=== PATIENT | male | born 1940 | race Caucasian/White ===

== ENCOUNTER 2017-08-08 08:37 | Inpatient (IN) | payer MEDICARE, BC ==
[2017-08-08] MEDS ORDERED: Sodium Chloride 0.9% 1,000 ML IV SCH ×2 (08:45→09:30)
[2017-08-08] MEDS ORDERED: Ondansetron 4 MG/2 ML SDV IVPUSH ONE (09:48)
--- NOTE | 2017-08-08 09:48 | EDM.PDOC ---
ED HPI GENERAL MEDICAL PROBLEM - General Chief Complaint: General Stated Complaint: MEDICAL [facility] Time Seen by Provider: 08/08/17 08:45 Source of Information: Reports: EMS, Family History Limitations: Reports: No Limitations - History of Present Illness INITIAL COMMENTS - FREE TEXT/NARRATIVE: pt arrived with a history of increased weakness. He is not able to transfer or ambulate. He has been taking fluids. His urine is very foul smelling. He is not verbal normally. He has not been vomiting. Onset: Gradual, Other ( Pt has not been doing well for the past few days. ) Duration: Day(s):, Getting Worse, Other ( just could not ambulate today. ) Location: Reports: Generalized Associated Symptoms: Reports: Loss of Appetite, Weakness - Related Data Allergies Allergy/AdvReac Type Severity Reaction Status Date / Time Latex, Natural Rubber Allergy Intermediate Swelling Verified 08/08/17 18:13 amoxicillin Allergy Nausea Verified 08/08/17 09:06 Home Meds: Home Meds Atenolol 12.5 mg PO BID 08/08/17 [History] Calcium Carbonate [Calcium] 1,200 mg PO DAILY 08/08/17 [History] Donepezil [Aricept] 5 mg PO ONETIME 08/08/17 [History] Folic Acid 2 mg PO DAILY 08/08/17 [History] Methotrexate 2.5 mg PO ASDIRECTED 08/08/17 [History] Potassium Chloride 30 meq PO DAILY 08/08/17 [History] Simvastatin [Zocor] 40 mg PO BEDTIME 08/08/17 [History] amLODIPine [Norvasc] 5 mg PO DAILY 08/08/17 [History] Past Medical History HEENT History: Reports: Hard of Hearing, Impaired Vision Other HEENT History: ear surgery Cardiovascular History: Reports: High Cholesterol, Hypertension Gastrointestinal History: Reports: Other (See Below) Other Gastrointestinal History: hernia Genitourinary History: Reports: Chronic Renal Insuffiency, Urinary Incontinence Musculoskeletal History: Reports: Fracture, Osteoporosis Other Musculoskeletal History: hip fx Neurological History: Reports: Alzheimers Disease Psychiatric History: Reports: Anxiety, Depression Dermatologic History: Reports: Psoriasis, Other (See Below) Other Dermatologic History: psoriatic athritis - Infectious Disease History Infectious Disease History: Reports: Chicken Pox, Measles, Mumps - Past Surgical History GI Surgical History: Reports: Appendectomy, Colonoscopy Social & Family History - Tobacco Use Smoking Status *Q: Never Smoker Second Hand Smoke Exposure: No - Caffeine Use Caffeine Use: Reports: None - Recreational Drug Use Recreational Drug Use: No ED ROS GENERAL - Review of Systems Review Of Systems: See Below HEENT: Reports: No Symptoms Respiratory: Reports: No Symptoms Cardiovascular: Reports: Other ( history of a aortiv valve replacement. ) Endocrine: Reports: No Symptoms GI/Abdominal: Reports: Other ( some abdomanal tenderness in epigastric area. He hs been vomiting alot.) : Reports: No Symptoms Musculoskeletal: Reports: No Symptoms Skin: Reports: No Symptoms ED EXAM, GENERAL - Physical Exam Exam: See Below Free Text/Narrative:: pt arrived with increased weakness. They were not able to get him out of bed as he was not able to help. He was not running a temp. His urine was faul. Exam Limited By: No Limitations General Appearance: Alert, Mild Distress, Other (pt is not normally verbal. ) Ears: Normal TMs Nose: Normal Inspection Throat/Mouth: Normal Inspection Head: Atraumatic Neck: Normal Inspection Respiratory/Chest: No Respiratory Distress Cardiovascular: Regular Rate, Rhythm GI/Abdominal: Other ( abdoman seemes distended. He is difficult to evaluate. It would appear that he is tender. ) (Male) Exam: Normal Inspection Rectal (Males) Exam: Deferred Back Exam: Normal Inspection Extremities: Other ( Pt has edema particularly on the rt side. ) Neurological: Alert, Other (pt is not normally verbal. ) Course - Vital Signs Last Recorded V/S: Last Vital Signs Temp 35.8 C 08/10/17 16:25 Pulse 59 L 08/10/17 11:34 Resp 16 08/10/17 11:34 BP 92/56 L 08/10/17 11:34 Pulse Ox 95 08/10/17 16:25 - Orders/Labs/Meds Orders: Medication Orders Acetaminophen (Tylenol) 650 mg PO Q4H PRN PRN Reason: Pain (Mild 1-3)/fever Acetaminophen (Tylenol) 650 mg RECTAL Q4H PRN PRN Reason: Mild pain/fever Atropine Sulfate (Atropine 1%) 0 ml SL Q4H PRN PRN Reason: secretions Last Admin: 08/09/17 11:20 Dose: 4 drop Lorazepam (Ativan Oral Concentrate 1mg/0.5 Ml U/D) 0.5 mg PO Q1H PRN PRN Reason: Agitation Melatonin (Melatonin) 9 mg PO BEDTIME RADHA Last Admin: 08/09/17 21:17 Dose: Not Given Admin: 08/08/17 20:19 Dose: 9 mg Morphine Sulfate (Morphine 10 Mg/0.5 Ml Oral Syringe) 5 mg PO Q1H PRN PRN Reason: Pain Last Admin: 08/10/17 18:31 Dose: 5 mg Ondansetron HCl (Zofran) 4 mg IV Q6H PRN PRN Reason: Nausea/Vomiting Labs: Laboratory Tests 08/08/17 08/08/17 08/08/17 Range/Units 08:57 08:57 09:25 WBC 3.9 L (4.5-11.0) K/uL RBC 3.45 L (4.30-5.90) M/uL Hgb 11.7 L (12.0-15.0) g/dL Hct 35.6 L (40.0-54.0) % MCV 103 H (80-98) fL MCH 34 H (27-31) pg MCHC 33 (32-36) % Plt Count 80 L (150-400) K/uL Neut % (Auto) 75 H (36-66) % Lymph % (Auto) 21 L (24-44) % Wilkinson % (Auto) 1 L (2-6) % Eos % (Auto) 3 (2-4) % Baso % (Auto) 0 (0-1) % Sodium 152 H (140-148) mmol/L Potassium 3.6 (3.6-5.2) mmol/L Chloride 115 H (100-108) mmol/L Carbon Dioxide 30 (21-32) mmol/L Anion Gap 10.6 (5.0-14.0) mmol/L BUN 51 H (7-18) mg/dL Creatinine 1.5 H (0.8-1.3) mg/dL Est Cr Clr Drug Dosing TNP Estimated GFR (MDRD) 46 L (>60) Glucose 130 H (74-106) mg/dL Calcium 8.5 (8.5-10.1) mg/dL Total Bilirubin 2.6 H (0.2-1.0) mg/dL AST 75 H (15-37) U/L ALT 44 (12-78) U/L Alkaline Phosphatase 142 H (46-116) U/L Total Protein 5.1 L (6.4-8.2) g/dL Albumin 2.0 L (3.4-5.0) g/dL Globulin 3.1 (2.3-3.5) g/dL Albumin/Globulin Ratio 0.7 L (1.2-2.2) Amylase (25-115) U/L Lipase 496 H (73-393) U/L Urine Color Urine Appearance Urine pH (4.5-8.0) Ur Specific [place] (1.008-1.030) Urine Protein (NEGATIVE) mg/dL Urine Glucose (UA) (NEGATIVE) mg/dL Urine Ketones (NEGATIVE) mg/dL Urine Occult Blood (NEGATIVE) Urine Nitrite (NEGAITVE) Urine Bilirubin (NEGATIVE) Urine Urobilinogen (NORMAL) mg/dL Ur Leukocyte Esterase (NEGATIVE) Urine RBC (0-5) Urine WBC (0-5) Ur Epithelial Cells Amorphous Sediment Urine Bacteria Urine Mucus Urine Other 08/08/17 08/08/17 Range/Units 10:06 10:12 WBC (4.5-11.0) K/uL RBC (4.30-5.90) M/uL Hgb (12.0-15.0) g/dL Hct (40.0-54.0) % MCV (80-98) fL MCH (27-31) pg MCHC (32-36) % Plt Count (150-400) K/uL Neut % (Auto) (36-66) % Lymph % (Auto) (24-44) % Wilkinson % (Auto) (2-6) % Eos % (Auto) (2-4) % Baso % (Auto) (0-1) % Sodium (140-148) mmol/L Potassium (3.6-5.2) mmol/L Chloride (100-108) mmol/L Carbon Dioxide (21-32) mmol/L Anion Gap (5.0-14.0) mmol/L BUN (7-18) mg/dL Creatinine (0.8-1.3) mg/dL Est Cr Clr Drug Dosing Estimated GFR (MDRD) (>60) Glucose (74-106) mg/dL Calcium (8.5-10.1) mg/dL Total Bilirubin (0.2-1.0) mg/dL AST (15-37) U/L ALT (12-78) U/L Alkaline Phosphatase (46-116) U/L Total Protein (6.4-8.2) g/dL Albumin (3.4-5.0) g/dL Globulin (2.3-3.5) g/dL Albumin/Globulin Ratio (1.2-2.2) Amylase 50 (25-115) U/L Lipase (73-393) U/L Urine Color Yellow Urine Appearance Slightly cloudy Urine pH 6.0 (4.5-8.0) Ur Specific [place] 1.015 (1.008-1.030) Urine Protein Negative (NEGATIVE) mg/dL Urine Glucose (UA) Normal (NEGATIVE) mg/dL Urine Ketones 15 H (NEGATIVE) mg/dL Urine Occult Blood Negative (NEGATIVE) Urine Nitrite Negative (NEGAITVE) Urine Bilirubin Small (NEGATIVE) Urine Urobilinogen >=12 H (NORMAL) mg/dL Ur Leukocyte Esterase Negative (NEGATIVE) Urine RBC 0-5 (0-5) Urine WBC 0-5 (0-5) Ur Epithelial Cells Few Amorphous Sediment Not seen Urine Bacteria Not seen Urine Mucus Many Urine Other Meds: Medications Generic Name Dose Route Start Last Admin Trade Name Freq PRN Reason Stop Dose Admin Acetaminophen 650 mg 08/08/17 15:54 Tylenol PO Q4H PRN Pain (Mild 1-3)/fever Acetaminophen 650 mg 08/08/17 15:54 Tylenol RECTAL Q4H PRN Mild pain/fever Atropine Sulfate 0 ml 08/09/17 11:09 08/09/17 11:20 Atropine 1% SL 4 drop Q4H PRN Administration secretions Lorazepam 0.5 mg 08/09/17 10:22 Ativan Oral Concentrate 1mg/0.5 Ml U/D PO Q1H PRN Agitation Melatonin 9 mg 08/08/17 21:00 08/09/17 21:17 Melatonin PO Not Given BEDTIME RADHA Morphine Sulfate 5 mg 08/09/17 10:24 08/10/17 18:31 Morphine 10 Mg/0.5 Ml Oral Syringe PO 5 mg Q1H PRN Administration Pain Ondansetron HCl 4 mg 08/08/17 15:54 Zofran IV Q6H PRN Nausea/Vomiting Discontinued Medications Generic Name Dose Route Start Last Admin Trade Name Freq PRN Reason Stop Dose Admin Donepezil HCl 5 mg 08/08/17 21:00 08/08/17 20:20 Aricept PO 5 mg BEDTIME RADHA Administration Folic Acid 2 mg 08/09/17 09:00 08/09/17 08:56 Folic Acid PO 2 mg DAILY RADHA Administration Sodium Chloride 1,000 mls @ 999 mls/hr 08/08/17 08:45 08/08/17 09:45 Normal Saline IV 999 mls/hr ASDIRECTED RADHA Administration Sodium Chloride 1,000 mls @ 999 mls/hr 08/08/17 09:30 08/08/17 11:01 Normal Saline IV 999 mls/hr ASDIRECTED RADHA Administration Potassium Chloride/Dextrose/Sod Cl 1,000 mls @ 100 mls/hr 08/08/17 14:45 01:57 D5 Ns With 20 Meq Kcl IV 100 mls/hr ASDIRECTED RADHA Administration Dextrose/Water 1,000 mls @ 100 mls/hr 08/09/17 08:30 Dextrose 5% In Water IV ASDIRECTED RADHA Morphine Sulfate 5 mg 08/08/17 15:54 Morphine 10 Mg/0.5 Ml Oral Syringe PO Q2H PRN Pain Ondansetron HCl 4 mg 08/08/17 09:48 08/08/17 09:15 Zofran IVPUSH 08/08/17 09:49 4 mg ONETIME ONE Administration Ondansetron HCl 4 mg 08/08/17 15:54 Zofran Odt PO Q6H PRN Nausea able to take PO Polyethylene Glycol 17 gm 08/08/17 15:54 Miralax PO DAILY PRN Constipation - Re-Assessments/Exams Free Text/Narrative Re-Assessment/Exam: 08/08/17 10:43 ABDOMAN LOOKS LIKE CIRRHOSIS OF THE LIVER WITH ACETES-- PER uS. wILL DO A CAT SCAN OF THE ABDOMAN WITHOUT CONTRAST. pT HAS AN ELEVATED LIPASE, AND SGOT. hE HAS ELEVATED BILIRUBIN. 08/08/17 11:35 pt had a cat scan of the abdoman which showed a probalbe cirrhosis of the liver He has alot of ascetes which is making the abdoman distended. Departure - Departure Time of Disposition: 16:25 Disposition: Admitted As Inpatient 67 Condition: Fair Clinical Impression: Severe dehydration Cirrhosis of liver Qualifiers: Hepatic cirrhosis type: unspecified hepatic cirrhosis Ascites presence: with ascites Qualified Code(s): K74.60 - Unspecified cirrhosis of liver - Discharge Information
--- NOTE | 2017-08-08 11:19 | CT ---
Abdomen Pelvis wo Cont HISTORY: ABDOMINAL DISTENTION Axial spiral noncontrasted CT scan of the abdomen and pelvis was obtained along with coronal reconstr uctions. There are no prior exams present for comparison. FINDINGS: There are moderate bilateral pleural effusions, right greater than left. Adjacent compressi ve atelectasis is seen posteriorly in both lower lobes. There is mild respiratory motion artifact. He art size is normal. Atherosclerotic aorta and coronary artery calcification are noted. Liver is small with a cirrhotic appearance. The spleen is normal in size. I see no abnormality of the gallbladder, pancreas, or adrenal glands. Left kidney is atrophic. No renal mass or hydronephrosis i s seen. I see no renal stone disease. No pelvic mass or abnormal fluid collections can be seen. I see no pelvic, or intracranial, or mesent mukund adenopathy. There is a large amount of free fluid throughout the abdomen and pelvis. No divertic ular disease is identified. No colon abnormality can be seen. A few proximal small bowel loops appear mildly distended and fluid-filled. There is no obvious lytic or blastic bony lesion. Several old rig ht posterior rib fractures are noted. There is some edema in the subcutaneous tissues. IMPRESSION: 1. Moderate bilateral pleural effusions, right greater than left, with adjacent compressive atelectas is. 2. Large amount of ascites throughout the abdomen and pelvis. 3. Small, cirrhotic appearing liver. 4. Atherosclerotic aorta and coronary artery calcification are noted. 5. A couple of slightly prominent, fluid-filled proximal small bowel loops are noted. No definite obs truction. 6. There is subcutaneous edema. Anasarca could be considered. Findings were discussed with Dr. Jansen in the Emergency Department at 1110 hours. Total DLP 979 mGycm
--- NOTE | 2017-08-08 11:32 | CR ---
Chest 1V Frontal HISTORY: weakness. FINDINGS: No acute infiltrate is identified. Cardiomediastinal silhouette is within normal limits. There is ath erosclerotic calcification in the aortic arch. Superior pulmonary vasculature is borderline prominent . Haziness over the lower right chest likely represents pleural fluid layering posteriorly. Several p osterior right rib fractures are probably old. Recommend clinical correlation. Bony structures and so ft tissues are otherwise unremarkable. IMPRESSION: Possible right pleural effusion layering posteriorly. Posterior right rib fractures are likely old. R ecommend clinical correlation. Superior pulmonary vasculature is borderline prominent. No other acute chest abnormality is identified.
--- NOTE | 2017-08-08 12:24 | US ---
Abdomen Ltd HISTORY: upper abdominal pain, elevated liver enzymes. FINDINGS: The liver appears small with mildly lobular margins and diffuse increased echogenicity consistent wit h cirrhosis. No focal parenchymal abnormality identified. Gallbladder is within normal limits in size . No gallstones are seen. Gallbladder wall is thickened measuring 6 mm. There is no pericholecystic f luid. Sonographic Che sign is negative. Biliary ducts are not dilated. Common bile duct measures 5 mm in diameter. The pancreas is obscured by bowel gas and could not be imaged. Right kidney is borderline small with no mass or hydronephrosis. There is no thinning of the renal cortex. The right kidney measures 8.5 x 5.1 x 5.7. Cortical echogenicity appears mildly decreased diffusely. Renal parenchymal disease could be considered. Abdominal aorta and inferior vena cava are unremarkable. Normal hepatopedal flow is se en in the portal vein. A large amount of ascites is seen throughout the abdomen. IMPRESSION: 1. Cirrhotic appearing liver. 2. Borderline small right kidney with increased cortical echogenicity suggests renal parenchymal dise ase. 3. Large amount of ascites throughout the abdomen. 4. Mild gallbladder wall thickening with no other gallbladder disease identified. The isolated wall t hickening is nonspecific and could be due to the cirrhosis and ascites.
--- NOTE | 2017-08-08 14:53 | PCM.HP ---
H&P History of Present Illness - General Date of Service: 08/08/17 Admit Problem/Dx: Admission Diagnosis/Problem Admission Diagnosis/Problem Hypernatremia Source of Information: Family, Provider. No: Patient History Limitations: Reports: Altered Mental Status - History of Present Illness Initial Comments - Free Text/Narative: Everette presents to the emergency room today with weakness. He is unable to provide any history at this time. History is gathered from his and son. They report over the past week or so he has become progressively weak. At baseline he sleeps approximately 20 hours a day but is able to get out of bed enough to go to the bathroom. Over the past few days he is too weak to bear any weight or even get to the side of the bed to use the urinal. They haven't noticed anything specific such as fevers. He has not displayed any evidence for pain and has not complained of any pain. They report that usually he is nonverbal and communicates with grunts. He will occasionally say a word but has not made sense for some months. Workup in the emergency room revealed significant dehydration with hypernatremia as well as pancytopenia based on laboratory testing. CT scan of the abdomen suggested cirrhosis with significant ascites. After discussion with the family we have elected to admit for hydration to see if we can improve strength and mental status some. They don't want aggressive workup for the cirrhosis at this time given his advanced Alzheimer's disease. - Related Data Allergies/Adverse Reactions: Allergies Allergy/AdvReac Type Severity Reaction Status Date / Time amoxicillin Allergy Nausea Verified 08/08/17 09:06 Home Medications: Home Meds Atenolol 12.5 mg PO BID 08/08/17 [History] Calcium Carbonate [Calcium] 1,200 mg PO DAILY 08/08/17 [History] Donepezil [Aricept] 5 mg PO ONETIME 08/08/17 [History] Folic Acid 2 mg PO DAILY 08/08/17 [History] Methotrexate 2.5 mg PO ASDIRECTED 08/08/17 [History] Potassium Chloride 30 meq PO DAILY 08/08/17 [History] Simvastatin [Zocor] 40 mg PO BEDTIME 08/08/17 [History] amLODIPine [Norvasc] 5 mg PO DAILY 08/08/17 [History] Past Medical History HEENT History: Reports: Hard of Hearing, Impaired Vision Other HEENT History: ear surgery Cardiovascular History: Reports: High Cholesterol, Hypertension Gastrointestinal History: Reports: Other (See Below) Other Gastrointestinal History: hernia Genitourinary History: Reports: Chronic Renal Insuffiency, Urinary Incontinence Musculoskeletal History: Reports: Fracture, Osteoporosis Other Musculoskeletal History: hip fx Neurological History: Reports: Alzheimers Disease Psychiatric History: Reports: Anxiety, Depression Dermatologic History: Reports: Psoriasis, Other (See Below) Other Dermatologic History: psoriatic athritis - Infectious Disease History Infectious Disease History: Reports: Chicken Pox, Measles, Mumps - Past Surgical History GI Surgical History: Reports: Appendectomy, Colonoscopy Social & Family History - Family History GI: Denies: Cirrhosis - Tobacco Use Smoking Status *Q: Never Smoker Second Hand Smoke Exposure: No - Caffeine Use Caffeine Use: Reports: None - Alcohol Use Alcohol Use History: No - Recreational Drug Use Recreational Drug Use: No H&P Review of Systems - Review of Systems: Review Of Systems: Unable To Obtain (Patient does not respond to any questions other than are you having pain) Exam - Exam Exam: See Below - Vital Signs Vital Signs: Last Vital Signs Temp 36.1 C 08/08/17 08:43 Pulse 56 L 08/08/17 08:43 Resp 16 08/08/17 08:43 BP 88/44 L 08/08/17 08:43 Pulse Ox 91 L 08/08/17 08:43 Weight: 52.163 kg - Exam Quality Assessment: No: Supplemental Oxygen General: Alert, Lethargic. No: Oriented, Cooperative, Mild Distress HEENT: Conjunctiva Clear, Hearing Intact. No: Mucosa Moist & Kaplan (Very dry), Scleral Icterus Neck: Supple, Trachea Midline. No: Lymphadenopathy, Thyromegaly Lungs: Clear to Auscultation, Normal Respiratory Effort Cardiovascular: Regular Rate, Regular Rhythm. No: Systolic Murmur GI/Abdominal Exam: Normal Bowel Sounds, Soft, Non-Tender, Distended (Moderate) Extremities: No Pedal Edema. No: Joint Swelling, Increased Warmth Peripheral Pulses: 2+: Dorsalis Pedis (L), Dorsalis Pedis (R) Skin: Warm, Dry Neuro Extensive - Mental Status: Alert, Slow Response to Commands. No: Oriented x3 Neuro Extensive - Motor, Sensory, Reflexes: No: Dysarthria, Abnormal Motor, Tremor Psychiatric: Alert, Anxious - Patient Data Lab Results Last 24 hrs: Laboratory Results - last 24 hr 08/08/17 08/08/17 08/08/17 Range/Units 08:57 08:57 09:25 WBC 3.9 L (4.5-11.0) K/uL RBC 3.45 L (4.30-5.90) M/uL Hgb 11.7 L (12.0-15.0) g/dL Hct 35.6 L (40.0-54.0) % MCV 103 H (80-98) fL MCH 34 H (27-31) pg MCHC 33 (32-36) % Plt Count 80 L (150-400) K/uL Neut % (Auto) 75 H (36-66) % Lymph % (Auto) 21 L (24-44) % [place]house % (Auto) 1 L (2-6) % Eos % (Auto) 3 (2-4) % Baso % (Auto) 0 (0-1) % Sodium 152 H (140-148) mmol/L Potassium 3.6 (3.6-5.2) mmol/L Chloride 115 H (100-108) mmol/L Carbon Dioxide 30 (21-32) mmol/L Anion Gap 10.6 (5.0-14.0) mmol/L BUN 51 H (7-18) mg/dL Creatinine 1.5 H (0.8-1.3) mg/dL Est Cr Clr Drug Dosing TNP Estimated GFR (MDRD) 46 L (>60) Glucose 130 H (74-106) mg/dL Calcium 8.5 (8.5-10.1) mg/dL Total Bilirubin 2.6 H (0.2-1.0) mg/dL AST 75 H (15-37) U/L ALT 44 (12-78) U/L Alkaline Phosphatase 142 H (46-116) U/L Total Protein 5.1 L (6.4-8.2) g/dL Albumin 2.0 L (3.4-5.0) g/dL Globulin 3.1 (2.3-3.5) g/dL Albumin/Globulin Ratio 0.7 L (1.2-2.2) Amylase (25-115) U/L Lipase 496 H (73-393) U/L Urine Color Urine Appearance Urine pH (4.5-8.0) Ur Specific [place] (1.008-1.030) Urine Protein (NEGATIVE) mg/dL Urine Glucose (UA) (NEGATIVE) mg/dL Urine Ketones (NEGATIVE) mg/dL Urine Occult Blood (NEGATIVE) Urine Nitrite (NEGAITVE) Urine Bilirubin (NEGATIVE) Urine Urobilinogen (NORMAL) mg/dL Ur Leukocyte Esterase (NEGATIVE) Urine RBC (0-5) Urine WBC (0-5) Ur Epithelial Cells Amorphous Sediment Urine Bacteria Urine Mucus Urine Other 08/08/17 08/08/17 Range/Units 10:06 10:12 WBC (4.5-11.0) K/uL RBC (4.30-5.90) M/uL Hgb (12.0-15.0) g/dL Hct (40.0-54.0) % MCV (80-98) fL MCH (27-31) pg MCHC (32-36) % Plt Count (150-400) K/uL Neut % (Auto) (36-66) % Lymph % (Auto) (24-44) % Morehouse % (Auto) (2-6) % Eos % (Auto) (2-4) % Baso % (Auto) (0-1) % Sodium (140-148) mmol/L Potassium (3.6-5.2) mmol/L Chloride (100-108) mmol/L Carbon Dioxide (21-32) mmol/L Anion Gap (5.0-14.0) mmol/L BUN (7-18) mg/dL Creatinine (0.8-1.3) mg/dL Est Cr Clr Drug Dosing Estimated GFR (MDRD) (>60) Glucose (74-106) mg/dL Calcium (8.5-10.1) mg/dL Total Bilirubin (0.2-1.0) mg/dL AST (15-37) U/L ALT (12-78) U/L Alkaline Phosphatase (46-116) U/L Total Protein (6.4-8.2) g/dL Albumin (3.4-5.0) g/dL Globulin (2.3-3.5) g/dL Albumin/Globulin Ratio (1.2-2.2) Amylase 50 (25-115) U/L Lipase (73-393) U/L Urine Color Yellow Urine Appearance Slightly cloudy Urine pH 6.0 (4.5-8.0) Ur Specific [place] 1.015 (1.008-1.030) Urine Protein Negative (NEGATIVE) mg/dL Urine Glucose (UA) Normal (NEGATIVE) mg/dL Urine Ketones 15 H (NEGATIVE) mg/dL Urine Occult Blood Negative (NEGATIVE) Urine Nitrite Negative (NEGAITVE) Urine Bilirubin Small (NEGATIVE) Urine Urobilinogen >=12 H (NORMAL) mg/dL Ur Leukocyte Esterase Negative (NEGATIVE) Urine RBC 0-5 (0-5) Urine WBC 0-5 (0-5) Ur Epithelial Cells Few Amorphous Sediment Not seen Urine Bacteria Not seen Urine Mucus Many Urine Other Result Diagrams: 08/08/17 08:57 08/08/17 08:57 Imaging Impressions Last 24 hrs: Chest x-ray - images personally reviewed - possible small right effusion. Heart size normal. No mass, infiltrate Right upper quadrant ultrasound - cirrhotic appearing liver. Mildly increased gallbladder wall thickness. Ascites CT scan of the abdomen and pelvis - cirrhotic appearing liver with significant ascites throughout the abdomen. *Q Meaningful Use (ADM) - VTE *Q VTE Criteria *Q: - VTE Risk Assess *Q Each Risk Factor Represents 1 Point: None Total Score 1 Point Risk Factors: 0 Each Risk Factor Represents 2 Points: Patient confined to bed greater than 72 hours Total Score 2 Point Risk Factors: 2 Each Risk Factor Represents 3 Points: Age 75 Years or Greater Total Score 3 Point Risk Factors: 3 Each Risk Factor Represents 5 Points: None Total Score 5 Point Risk Factors: 0 Venous Thromboembolism Risk Factor Score *Q: 5 - Stroke *Q Stroke Criteria *Q: - AMI *Q AMI Criteria *Q: - Problem List (1) Hypernatremia SNOMED Code(s): 50631591 ICD Code: E87.0 - HYPEROSMOLALITY AND HYPERNATREMIA Status: Acute Current Visit: Yes (2) Cirrhosis of liver SNOMED Code(s): 90524663 ICD Code: K74.60 - UNSPECIFIED CIRRHOSIS OF LIVER Status: Acute Current Visit: Yes Qualifiers: Hepatic cirrhosis type: unspecified hepatic cirrhosis Ascites presence: with ascites Qualified Code(s): K74.60 - Unspecified cirrhosis of liver (3) Alzheimer's dementia without behavioral disturbance SNOMED Code(s): 35590913 ICD Code: G30.9 - ALZHEIMER'S DISEASE, UNSPECIFIED; F02.80 - DEMENTIA IN OTH DISEASES CLASSD ELSWHR W/O BEHAVRL DISTURB Status: Acute Current Visit: Yes Qualifiers: Alzheimer's disease onset: late-onset Qualified Code(s): G30.1 - Alzheimer' s disease with late onset; F02.80 - Dementia in other diseases classified elsewhere without behavioral disturbance; F02.80 - Dementia in other diseases classified elsewhere without behavioral disturbance; F02.80 - Dementia in other diseases classified elsewhere without behavioral disturbance (4) Hypokalemia SNOMED Code(s): 91885236 ICD Code: E87.6 - HYPOKALEMIA Status: Acute Current Visit: Yes (5) Stage III chronic kidney disease SNOMED Code(s): 719182023 ICD Code: N18.3 - CHRONIC KIDNEY DISEASE, STAGE 3 (MODERATE) Status: Chronic Current Visit: Yes (6) Palliative care encounter SNOMED Code(s): 428170535 ICD Code: Z51.5 - ENCOUNTER FOR PALLIATIVE CARE Status: Chronic Current Visit: Yes Problem List Initiated/Reviewed/Updated: Yes Orders Last 24hrs: Active Orders 24 hr Category Date Time Status Patient Status Manage Transfer [TRANSFER] Routine ADT 08/08/17 14:40 Ordered EKG Documentation Completion [RC] ASDIRECTED Care 08/08/17 09:06 Active Enciso Catheter Insertion [Insert Urinary Catheter] [OM. Care 08/08/17 09:30 Ordered PC] Q24H Urinary Catheter Assessment [RC] ASDIRECTED Care 08/08/17 09:24 Active CULTURE BLOOD [BC] Urgent Lab 08/08/17 10:15 Received CULTURE BLOOD [BC] Urgent Lab 08/08/17 10:21 Received Dextrose 5%-0.9% NaCl with KCl [D5 NS with 20 mEq KCl] Med 08/08/17 14:45 Active 1,000 ml IV ASDIRECTED Blood Culture x2 Reflex Set [OM.PC] Urgent Oth 08/08/17 10:07 Ordered Resuscitation Status Routine Resus Stat 08/08/17 14:41 Ordered EKG 12 Lead [EK] Routine Ther 08/08/17 09:05 Ordered Medication Orders Potassium Chloride/Dextrose/Sod Cl (D5 Ns With 20 Meq Kcl) 1,000 mls @ 100 mls/ hr IV ASDIRECTED RADHA Assessment/Plan Comment:: ASSESSMENT AND PLAN - Hypovolemic hypernatremia - significant dehydration on examination. I suspect his sodium will improve with hydration. If the sodium does not come down with hydration and we may need to consider a D5W infusion to correct his free water deficit. -Repeat sodium this afternoon -IV fluids through the day with repeat labs in the morning Cirrhosis - New diagnosis. Complicated by pancytopenia and ascites. Suspect toxic causes. He does not have a history of alcohol use or abuse per his family. Methotrexate could be considered. -Monitor for evidence of infection -Ammonia level -Hold off on diuretics given significant dehydration Alzheimer's dementia - Fairly rapid decline despite being started on medications. Very weak at this time. Family does not believe he would want aggressive interventions given his poor [id number]. -Continue Aricept -Discontinue statin -Morphine for comfort -Melatonin at bedtime Encounter for palliative care - Family is agreeable to admission for hydration but they do not want aggressive cares or resuscitation should his condition declined. Hospice make be considered if we are unable to improve his strength and quality of life over the next few days. Maintenance issues - - DVT prophylaxis - mechanical with thrombocytopenia - GI prophylaxis - not indicated - Nutrition - soft diet - Enciso catheter - placed in the emergency room CODE STATUS - DNR/DNI Admission justification - This patient will be admitted for inpatient services and is medically appropriate meeting medical necessity for inpatient admission as outlined in my documentation. I reasonably expect the patient will require inpatient services that span a period time over 2 midnights. I reasonably expect this patient to be discharged or transferred within 96 hours [facility] Disposition - anticipate discharge to home versus senior care versus home with hospice depending on the course of the hospital stay Primary care physician - Dr Nathan Gibbs M.D.
[2017-08-08] MEDS ORDERED: Acetaminophen 325 MG Tab PO PRN (15:54)
[2017-08-08] MEDS ORDERED: Acetaminophen 650 MG Supp RECTAL PRN (15:54)
[2017-08-08] MEDS ORDERED: Ondansetron 4 MG/2 ML SDV IV PRN (15:54)
[2017-08-08] MEDS ORDERED: Polyethylene Glycol 3350 Powder 17 GM Packet PO PRN (15:54)
[2017-08-08] MEDS ORDERED: Ondansetron 4 MG Tab.DIS PO PRN (15:54)
[2017-08-08] MEDS ORDERED: Morphine 10 MG/0.5 ML Oral Syringe PO PRN (15:54)
[2017-08-08] MEDS: Dextrose 5%-0.9% NaCl with KCl 1,000 ML IV SCH (16:00)
[2017-08-08] MEDS: Melatonin 3 MG Tab PO SCH (20:19)
[2017-08-08] MEDS ORDERED: Non-Formulary Medication 1 Each (Donepezil [Aricept] 5 MG) PO SCH (21:00)
[2017-08-08] MEDS ORDERED: Donepezil 10 MG Tab PO SCH (21:00)
[2017-08-09] MEDS: Dextrose 5%-0.9% NaCl with KCl 1,000 ML IV SCH (01:57)
[2017-08-09] MEDS ORDERED: Dextrose 5% in Water 1,000 ML IV SCH (08:30)
[2017-08-09] MEDS ORDERED: Folic Acid 1 MG Tab PO SCH (09:00)
[2017-08-09] MEDS ORDERED: Atropine Sulfate Ophth 2 ML Drops SL PRN (10:24)
--- NOTE | 2017-08-09 10:26 | PCM.PN ---
- General Info Date of Service: 08/09/17 - Review of Systems Pulmonary: Reports: Shortness of Breath, Cough Systems Review Comment:: Patient had a coughing episode last night while trying to consume supper and shortly thereafter developed increased work of breathing and hypoxia concerning for aspiration. He has been on 4 L of supplemental oxygen overnight. He appears uncomfortable this morning. He did not have any fevers. Sodium level remained stable but elevated despite volume resuscitation. I discussed the situation with his Eileen and son Chinedu again this morning. We have elected to move towards comfort cares given his advanced dementia complicated by cirrhosis and now aspiration pneumonitis with hypoxic respiratory failure. - Patient Data Vitals - Most Recent: Last Vital Signs Temp 35.7 C 08/09/17 08:19 Pulse 71 08/09/17 08:19 Resp 18 08/09/17 08:19 BP 81/51 L 08/09/17 08:19 Pulse Ox 93 L 08/09/17 08:19 Weight - Most Recent: 52.163 kg I&O - Last 24 Hours: Intake & Output 08/08/17 08/09/17 08/09/17 22:59 06:59 14:59 Intake Total 515 1330 Output Total 200 250 Balance 315 1080 Lab Results Last 24 Hours: Laboratory Results - last 24 hr 08/08/17 08/08/17 08/09/17 Range/Units 18:00 18:00 05:52 WBC 2.7 L (4.5-11.0) K/uL RBC 3.19 L (4.30-5.90) M/uL Hgb 11.1 L (12.0-15.0) g/dL Hct 32.8 L (40.0-54.0) % MCV 103 H (80-98) fL MCH 35 H (27-31) pg MCHC 34 (32-36) % Plt Count 51 L (150-400) K/uL PT (9.5-12.0) sec INR (0.80-1.20) Sodium 151 H (140-148) mmol/L Potassium (3.6-5.2) mmol/L Chloride (100-108) mmol/L Carbon Dioxide (21-32) mmol/L Anion Gap (5.0-14.0) mmol/L BUN (7-18) mg/dL Creatinine (0.8-1.3) mg/dL Est Cr Clr Drug Dosing mL/min Estimated GFR (MDRD) (>60) Glucose (74-106) mg/dL Calcium (8.5-10.1) mg/dL Ammonia 36 H (11-32) mmol/L TSH, Ultra Sensitive (0.358-3.740) uIU/mL 08/09/17 08/09/17 Range/Units 05:52 05:52 WBC (4.5-11.0) K/uL RBC (4.30-5.90) M/uL Hgb (12.0-15.0) g/dL Hct (40.0-54.0) % MCV (80-98) fL MCH (27-31) pg MCHC (32-36) % Plt Count (150-400) K/uL PT 16.4 H (9.5-12.0) sec INR 1.51 H (0.80-1.20) Sodium 153 H (140-148) mmol/L Potassium 3.5 L (3.6-5.2) mmol/L Chloride 118 H (100-108) mmol/L Carbon Dioxide 29 (21-32) mmol/L Anion Gap 9.5 (5.0-14.0) mmol/L BUN 47 H (7-18) mg/dL Creatinine 1.4 H (0.8-1.3) mg/dL Est Cr Clr Drug Dosing 33.12 mL/min Estimated GFR (MDRD) 49 L (>60) Glucose 157 H (74-106) mg/dL Calcium 7.9 L (8.5-10.1) mg/dL Ammonia (11-32) mmol/L TSH, Ultra Sensitive 2.573 (0.358-3.740) uIU/mL Med Orders - Current: Current Medications Acetaminophen (Tylenol) 650 mg PO Q4H PRN PRN Reason: Pain (Mild 1-3)/fever Acetaminophen (Tylenol) 650 mg RECTAL Q4H PRN PRN Reason: Mild pain/fever Lorazepam (Ativan Oral Concentrate 1mg/0.5 Ml U/D) 0.5 mg PO Q1H PRN PRN Reason: Agitation Melatonin (Melatonin) 9 mg PO BEDTIME RADHA Last Admin: 08/08/17 20:19 Dose: 9 mg Morphine Sulfate (Morphine 10 Mg/0.5 Ml Oral Syringe) 5 mg PO Q1H PRN PRN Reason: Pain Ondansetron HCl (Zofran) 4 mg IV Q6H PRN PRN Reason: Nausea/Vomiting Discontinued Medications Donepezil HCl (Aricept) 5 mg PO BEDTIME [facility] Last Admin: 08/08/17 20:20 Dose: 5 mg Folic Acid (Folic Acid) 2 mg PO DAILY [facility] Last Admin: 08/09/17 08:56 Dose: 2 mg Sodium Chloride (Normal Saline) 1,000 mls @ 999 mls/hr IV ASDIRECTED [facility] Last Admin: 08/08/17 09:45 Dose: 999 mls/hr Sodium Chloride (Normal Saline) 1,000 mls @ 999 mls/hr IV ASDIRECTED [facility] Last Admin: 08/08/17 11:01 Dose: 999 mls/hr Potassium Chloride/Dextrose/Sod Cl (D5 Ns With 20 Meq Kcl) 1,000 mls @ 100 mls/ hr IV ASDIRECTED [facility] Last Admin: 08/09/17 01:57 Dose: 100 mls/hr Dextrose/Water (Dextrose 5% In Water) 1,000 mls @ 100 mls/hr IV ASDIRECTED [facility] Morphine Sulfate (Morphine 10 Mg/0.5 Ml Oral Syringe) 5 mg PO Q2H PRN PRN Reason: Pain Ondansetron HCl (Zofran) 4 mg IVPUSH ONETIME ONE Stop: 08/08/17 09:49 Last Admin: 08/08/17 09:15 Dose: 4 mg Ondansetron HCl (Zofran Odt) 4 mg PO Q6H PRN PRN Reason: Nausea able to take PO Polyethylene Glycol (Miralax) 17 gm PO DAILY PRN PRN Reason: Constipation - Exam Quality Assessment: Supplemental Oxygen General: Alert, Moderate Distress. No: Oriented Lungs: Rhonchi (diffuse). No: Normal Respiratory Effort (increased work of breathing), Wheezing GI/Abdominal Exam: Distended Psy/Mental Status: Alert, Anxious, Agitated - Problem List & Annotations (1) Hypernatremia SNOMED Code(s): 66028837 Code(s): E87.0 - HYPEROSMOLALITY AND HYPERNATREMIA Status: Acute Current Visit: Yes (2) Cirrhosis of liver SNOMED Code(s): 41069131 Code(s): K74.60 - UNSPECIFIED CIRRHOSIS OF LIVER Status: Acute Current Visit: Yes Qualifiers: Hepatic cirrhosis type: unspecified hepatic cirrhosis Ascites presence: with ascites Qualified Code(s): K74.60 - Unspecified cirrhosis of liver (3) Alzheimer's dementia without behavioral disturbance SNOMED Code(s): 32718555 Code(s): G30.9 - ALZHEIMER'S DISEASE, UNSPECIFIED; F02.80 - DEMENTIA IN OTH DISEASES CLASSD ELSWHR W/O BEHAVRL DISTURB Status: Acute Current Visit: Yes Qualifiers: Alzheimer's disease onset: late-onset Qualified Code(s): G30.1 - Alzheimer' s disease with late onset; F02.80 - Dementia in other diseases classified elsewhere without behavioral disturbance; F02.80 - Dementia in other diseases classified elsewhere without behavioral disturbance; F02.80 - Dementia in other diseases classified elsewhere without behavioral disturbance (4) Hypokalemia SNOMED Code(s): 21052237 Code(s): E87.6 - HYPOKALEMIA Status: Acute Current Visit: Yes (5) Stage III chronic kidney disease SNOMED Code(s): 188873868 Code(s): N18.3 - CHRONIC KIDNEY DISEASE, STAGE 3 (MODERATE) Status: Chronic Current Visit: Yes (6) Palliative care encounter SNOMED Code(s): 685984421 Code(s): Z51.5 - ENCOUNTER FOR PALLIATIVE CARE Status: Chronic Current Visit: Yes - Problem List Review Problem List Initiated/Reviewed/Updated: Yes - My Orders Last 24 Hours: My Active Orders 08/08/17 15:54 Patient Status [ADT] Routine Bedrest Bedside Commode [RC] ASDIRECTED Intake and Output [RC] QSHIFT Notify Provider Vital Signs [RC] ASDIRECTED Oxygen Therapy [RC] PRN Up With Assistance [RC] ASDIRECTED VTE/DVT Education [RC] Per Unit Routine Vital Signs [RC] QSHIFT Acetaminophen [Tylenol] 650 mg PO Q4H PRN Acetaminophen [Tylenol] 650 mg RECTAL Q4H PRN Ondansetron [Zofran] 4 mg IV Q6H PRN Antiembolic Hose [OM.PC] Per Unit Routine Pressure Reduction Mattress [OM.PC] Routine VTE Pharmacological Contraindications [AST] Per Unit Routine 08/08/17 21:00 Melatonin 9 mg PO BEDTIME 08/08/17 Dinner Mechanical Soft Diet [DIET] 08/09/17 10:22 LORazepam [Ativan ORAL Concentrate 1MG/0.5 ML U/D] 0.5 mg PO Q1H PRN 08/09/17 10:23 Resuscitation Status Routine 08/09/17 10:24 Atropine Sulfate [Atropine 1%] 4 ml SL Q4H PRN Morphine [Morphine 10 MG/0.5 ML Oral Syringe] 5 mg PO Q1H PRN 08/09/17 Lunch Thickened Liquids [DIET] - Plan Plan:: ASSESSMENT AND PLAN - Hypovolemic hypernatremia - level has not improved despite volume resuscitation. Did plan to replace his free water deficit but we are transitioning to comfort cares as discussed below. -Saline lock IV Probable aspiration pneumonitis with hypoxic respiratory failure - coughing episode while eating supper followed shortly by hypoxic respiratory failure concerning for aspiration. This combined with his new cirrhosis and severe Alzheimer's disease has prompted a transition to comfort cares at this time. His and son are on board with this plan and do not feel that he would want aggressive cares given his very poor [id number]. -Morphine for pain and or air hunger -Lorazepam for anxiety Cirrhosis - New diagnosis. Complicated by pancytopenia and ascites. Suspect toxic causes. Family not interested in additional workup. -Comfort cares as above Alzheimer's dementia - Fairly rapid decline despite being started on medications. Very weak at this time. Family does not believe he would want aggressive interventions given his poor [id number]. -Morphine for comfort -Melatonin at bedtime Encounter for palliative care - Family feels that patient would not want aggressive cares in this situation and we are transitioning to comfort cares today. Maintenance issues - - DVT prophylaxis - not indicated with comfort cares - GI prophylaxis - not indicated - Nutrition - soft diet - Enciso catheter - placed in the emergency room, will remain in place for comfort CODE STATUS - DNR/DNI with comfort cares Disposition - the patient is not stable for transfer to either fdc or home for comfort cares at this time. I would anticipate that his will occur in the near future with a limited number of hours or possibly up to a couple of days. Primary care physician - Dr Nathan Gibbs M.D.
[2017-08-09] MEDS: Atropine Sulfate Ophth 2 ML Drops SL PRN (11:20)
[2017-08-09] MEDS: Melatonin 3 MG Tab PO SCH (21:17)
--- NOTE | 2017-08-10 14:29 | PCM.PN ---
- General Info Date of Service: 08/10/17 Functional Status: Reports: Pain Controlled - Review of Systems General: Denies: Fever Systems Review Comment:: no acute events overnight. Pain has appeared to be well controlled. He is obtunded this morning and does not wake up with questions, examination or mild painful stimuli. Blood pressures have been in the 80s. Oxygen saturations are around 90% on 4 L. Family updated on the situation. Continuing comfort cares. - Patient Data Vitals - Most Recent: Last Vital Signs Temp 37.2 C 08/10/17 11:34 Pulse 59 L 08/10/17 11:34 Resp 16 08/10/17 11:34 BP 92/56 L 08/10/17 11:34 Pulse Ox 88 L 08/10/17 11:34 Weight - Most Recent: 52.163 kg I&O - Last 24 Hours: Intake & Output 08/09/17 08/10/17 08/10/17 22:59 06:59 14:59 Output Total 125 200 Balance -125 -200 Med Orders - Current: Current Medications Acetaminophen (Tylenol) 650 mg PO Q4H PRN PRN Reason: Pain (Mild 1-3)/fever Acetaminophen (Tylenol) 650 mg RECTAL Q4H PRN PRN Reason: Mild pain/fever Atropine Sulfate (Atropine 1%) 0 ml SL Q4H PRN PRN Reason: secretions Last Admin: 08/09/17 11:20 Dose: 4 drop Lorazepam (Ativan Oral Concentrate 1mg/0.5 Ml U/D) 0.5 mg PO Q1H PRN PRN Reason: Agitation Melatonin (Melatonin) 9 mg PO BEDTIME [facility] Last Admin: 08/09/17 21:17 Dose: Not Given Morphine Sulfate (Morphine 10 Mg/0.5 Ml Oral Syringe) 5 mg PO Q1H PRN PRN Reason: Pain Ondansetron HCl (Zofran) 4 mg IV Q6H PRN PRN Reason: Nausea/Vomiting Discontinued Medications Donepezil HCl (Aricept) 5 mg PO BEDTIME [facility] Last Admin: 08/08/17 20:20 Dose: 5 mg Folic Acid (Folic Acid) 2 mg PO DAILY [facility] Last Admin: 08/09/17 08:56 Dose: 2 mg Sodium Chloride (Normal Saline) 1,000 mls @ 999 mls/hr IV ASDIRECTED [facility] Last Admin: 08/08/17 09:45 Dose: 999 mls/hr Sodium Chloride (Normal Saline) 1,000 mls @ 999 mls/hr IV ASDIRECTED [facility] Last Admin: 08/08/17 11:01 Dose: 999 mls/hr Potassium Chloride/Dextrose/Sod Cl (D5 Ns With 20 Meq Kcl) 1,000 mls @ 100 mls/ hr IV ASDIRECTED [facility] Last Admin: 08/09/17 01:57 Dose: 100 mls/hr Dextrose/Water (Dextrose 5% In Water) 1,000 mls @ 100 mls/hr IV ASDIRECTED [facility] Morphine Sulfate (Morphine 10 Mg/0.5 Ml Oral Syringe) 5 mg PO Q2H PRN PRN Reason: Pain Ondansetron HCl (Zofran) 4 mg IVPUSH ONETIME ONE Stop: 08/08/17 09:49 Last Admin: 08/08/17 09:15 Dose: 4 mg Ondansetron HCl (Zofran Odt) 4 mg PO Q6H PRN PRN Reason: Nausea able to take PO Polyethylene Glycol (Miralax) 17 gm PO DAILY PRN PRN Reason: Constipation - Exam Quality Assessment: Supplemental Oxygen General: No Acute Distress. No: Alert Lungs: Normal Respiratory Effort, Rhonchi (diffuse) Cardiovascular: Regular Rhythm, Tachycardia Psy/Mental Status: No: Alert, Agitated - Problem List & Annotations (1) Hypernatremia SNOMED Code(s): 02204149 Code(s): E87.0 - HYPEROSMOLALITY AND HYPERNATREMIA Status: Acute Current Visit: Yes (2) Cirrhosis of liver SNOMED Code(s): 86348700 Code(s): K74.60 - UNSPECIFIED CIRRHOSIS OF LIVER Status: Acute Current Visit: Yes Qualifiers: Hepatic cirrhosis type: unspecified hepatic cirrhosis Ascites presence: with ascites Qualified Code(s): K74.60 - Unspecified cirrhosis of liver (3) Alzheimer's dementia without behavioral disturbance SNOMED Code(s): 99687758 Code(s): G30.9 - ALZHEIMER'S DISEASE, UNSPECIFIED; F02.80 - DEMENTIA IN OTH DISEASES CLASSD ELSWHR W/O BEHAVRL DISTURB Status: Acute Current Visit: Yes Qualifiers: Alzheimer's disease onset: late-onset Qualified Code(s): G30.1 - Alzheimer' s disease with late onset; F02.80 - Dementia in other diseases classified elsewhere without behavioral disturbance; F02.80 - Dementia in other diseases classified elsewhere without behavioral disturbance; F02.80 - Dementia in other diseases classified elsewhere without behavioral disturbance (4) Hypokalemia SNOMED Code(s): 09297589 Code(s): E87.6 - HYPOKALEMIA Status: Acute Current Visit: Yes (5) Stage III chronic kidney disease SNOMED Code(s): 613915136 Code(s): N18.3 - CHRONIC KIDNEY DISEASE, STAGE 3 (MODERATE) Status: Chronic Current Visit: Yes (6) Palliative care encounter SNOMED Code(s): 954791313 Code(s): Z51.5 - ENCOUNTER FOR PALLIATIVE CARE Status: Chronic Current Visit: Yes - Problem List Review Problem List Initiated/Reviewed/Updated: Yes - Plan Plan:: ASSESSMENT AND PLAN - Probable aspiration pneumonitis with hypoxic respiratory failure - coughing episode while eating supper followed shortly by hypoxic respiratory failure concerning for aspiration. This combined with his new cirrhosis and severe Alzheimer's disease has prompted a transition to comfort cares. respiratory status stable since last night but remains very compromised. -Morphine for pain and or air hunger -Lorazepam for anxiety Cirrhosis - New diagnosis. Complicated by pancytopenia and ascites. Suspect toxic causes. Family not interested in additional workup. -Comfort cares as above Hypovolemic hypernatremia - level has not improved despite volume resuscitation. now on comfort cares. -Saline lock IV Alzheimer's dementia - Fairly rapid decline despite being started on medications. Very weak at this time. Family does not believe he would want aggressive interventions given his poor [id number]. -Morphine for comfort -Melatonin at bedtime Encounter for palliative care - Family feels that patient would not want aggressive cares in this situation and we are transitioning to comfort cares today. Maintenance issues - - DVT prophylaxis - not indicated with comfort cares - GI prophylaxis - not indicated - Nutrition - soft diet - Enciso catheter - placed in the emergency room, will remain in place for comfort CODE STATUS - DNR/DNI with comfort cares Disposition - the patient is not stable for transfer to either intermediate or home for comfort cares at this time. I would anticipate that his will occur in the near future with a limited number of hours or possibly up to a couple of days. Primary care physician - Dr Nathan Gibbs M.D.
[2017-08-10] MEDS: Morphine 10 MG/0.5 ML Oral Syringe PO PRN (18:31)
[2017-08-10] MEDS: Melatonin 3 MG Tab PO SCH (21:54)
--- NOTE | 2017-08-11 12:31 | PCM.PN ---
- General Info Date of Service: 08/11/17 Subjective Update: This patient has a known history of severe progressive dementia, recent diagnosis of hepatic cirrhosis with ascites, and aspiration likely secondary to his progressive dementia. Family is made the decision to proceed with comfort cares only and feel that this is very consistent with patient's previously expressed wishes. He has been comfortable over the past 24 hours, oral intake has been negligible. - Patient Data Vitals - Most Recent: Last Vital Signs Temp 96.5 F 08/10/17 16:25 Pulse 59 L 08/10/17 11:34 Resp 16 08/10/17 11:34 BP 92/56 L 08/10/17 11:34 Pulse Ox 94 L 08/11/17 05:00 Weight - Most Recent: 115 lb I&O - Last 24 Hours: Intake & Output 08/10/17 08/11/17 08/11/17 22:59 06:59 14:59 Output Total 50 Balance -50 Med Orders - Current: Current Medications Acetaminophen (Tylenol) 650 mg PO Q4H PRN PRN Reason: Pain (Mild 1-3)/fever Acetaminophen (Tylenol) 650 mg RECTAL Q4H PRN PRN Reason: Mild pain/fever Atropine Sulfate (Atropine 1%) 0 ml SL Q4H PRN PRN Reason: secretions Last Admin: 08/09/17 11:20 Dose: 4 drop Lorazepam (Ativan Oral Concentrate 1mg/0.5 Ml U/D) 0.5 mg PO Q1H PRN PRN Reason: Agitation Melatonin (Melatonin) 9 mg PO BEDTIME [facility] Last Admin: 08/10/17 21:54 Dose: Not Given Morphine Sulfate (Morphine 10 Mg/0.5 Ml Oral Syringe) 5 mg PO Q1H PRN PRN Reason: Pain Last Admin: 08/10/17 18:31 Dose: 5 mg Ondansetron HCl (Zofran) 4 mg IV Q6H PRN PRN Reason: Nausea/Vomiting Discontinued Medications Donepezil HCl (Aricept) 5 mg PO BEDTIME [facility] Last Admin: 08/08/17 20:20 Dose: 5 mg Folic Acid (Folic Acid) 2 mg PO DAILY [facility] Last Admin: 08/09/17 08:56 Dose: 2 mg Sodium Chloride (Normal Saline) 1,000 mls @ 999 mls/hr IV ASDIRECTED [facility] Last Admin: 08/08/17 09:45 Dose: 999 mls/hr Sodium Chloride (Normal Saline) 1,000 mls @ 999 mls/hr IV ASDIRECTED [facility] Last Admin: 08/08/17 11:01 Dose: 999 mls/hr Potassium Chloride/Dextrose/Sod Cl (D5 Ns With 20 Meq Kcl) 1,000 mls @ 100 mls/ hr IV ASDIRECTED [facility] Last Admin: 08/09/17 01:57 Dose: 100 mls/hr Dextrose/Water (Dextrose 5% In Water) 1,000 mls @ 100 mls/hr IV ASDIRECTED [facility] Morphine Sulfate (Morphine 10 Mg/0.5 Ml Oral Syringe) 5 mg PO Q2H PRN PRN Reason: Pain Ondansetron HCl (Zofran) 4 mg IVPUSH ONETIME ONE Stop: 08/08/17 09:49 Last Admin: 08/08/17 09:15 Dose: 4 mg Ondansetron HCl (Zofran Odt) 4 mg PO Q6H PRN PRN Reason: Nausea able to take PO Polyethylene Glycol (Miralax) 17 gm PO DAILY PRN PRN Reason: Constipation - Exam General: Other (Severe dementia) Lungs: Clear to Auscultation, Normal Respiratory Effort Cardiovascular: Regular Rate, Regular Rhythm, No Murmurs GI/Abdominal Exam: Soft, Non-Tender, No Organomegaly, No Distention Extremities: Non-Tender, No Pedal Edema Skin: Warm, Dry - Problem List Review Problem List Initiated/Reviewed/Updated: Yes - Plan Plan:: ASSESSMENT AND PLAN - Probable aspiration pneumonitis with hypoxic respiratory failure - coughing episode while eating supper followed shortly by hypoxic respiratory failure concerning for aspiration. This combined with his new cirrhosis and severe Alzheimer's disease has prompted a transition to comfort cares. respiratory status stable. -Morphine for pain and or air hunger -Lorazepam for anxiety Cirrhosis - New diagnosis. Complicated by pancytopenia and ascites. Suspect toxic causes. Family not interested in additional workup. -Comfort cares as above Hypovolemic hypernatremia - level has not improved despite volume resuscitation. now on comfort cares. -Saline lock IV Alzheimer's dementia - Fairly rapid decline despite being started on medications. Very weak at this time. Family does not believe he would want aggressive interventions given his poor [id number]. -Morphine for comfort -Melatonin at bedtime Encounter for palliative care - Family feels that patient would not want aggressive cares in this situation and we are transitioning to comfort cares today. Maintenance issues - - DVT prophylaxis - not indicated with comfort cares - GI prophylaxis - not indicated - Nutrition - soft diet - Enciso catheter - placed in the emergency room, will remain in place for comfort CODE STATUS - DNR/DNI with comfort cares Disposition - the patient is not stable for transfer to either detention or home for comfort cares at this time. I would anticipate that his will occur in the near future with a limited number of hours or possibly up to a couple of days. Primary care physician - Dr Evans
[2017-08-11] MEDS: Melatonin 3 MG Tab PO SCH (20:01)
[2017-08-12] MEDS: Morphine 10 MG/0.5 ML Oral Syringe PO PRN (02:05)
[2017-08-12] MEDS: LORazepam ORAL Concentrate 1MG/0.5ML U/D PO PRN ×2 (03:04→09:13)
--- NOTE | 2017-08-12 16:02 | PCM.PN ---
- General Info Date of Service: 08/12/17 Subjective Update: This patient has remained comfortable over the past 24 hours with current use of morphine and lorazepam. He is less responsive today and blood pressures have been trending very low. Is currently not able to provide significant history concerning review of systems. Functional Status: Reports: Pain Controlled - Patient Data Vitals - Most Recent: Last Vital Signs Temp 97.4 F 08/12/17 10:25 Pulse 70 08/12/17 10:25 Resp 12 08/12/17 10:25 BP 79/44 L 08/12/17 10:25 Pulse Ox 93 L 08/12/17 10:25 Weight - Most Recent: 115 lb I&O - Last 24 Hours: Intake & Output 08/12/17 08/12/17 08/12/17 06:59 14:59 22:59 Output Total 300 Balance -300 Med Orders - Current: Current Medications Acetaminophen (Tylenol) 650 mg PO Q4H PRN PRN Reason: Pain (Mild 1-3)/fever Acetaminophen (Tylenol) 650 mg RECTAL Q4H PRN PRN Reason: Mild pain/fever Atropine Sulfate (Atropine 1%) 0 ml SL Q4H PRN PRN Reason: secretions Last Admin: 08/09/17 11:20 Dose: 4 drop Lorazepam (Ativan Oral Concentrate 1mg/0.5 Ml U/D) 0.5 mg PO Q1H PRN PRN Reason: Agitation Last Admin: 08/12/17 09:13 Dose: 0.5 mg Melatonin (Melatonin) 9 mg PO BEDTIME [facility] Last Admin: 08/11/17 20:01 Dose: Not Given Morphine Sulfate (Morphine 10 Mg/0.5 Ml Oral Syringe) 5 mg PO Q1H PRN PRN Reason: Pain Last Admin: 08/12/17 02:05 Dose: 5 mg Ondansetron HCl (Zofran) 4 mg IV Q6H PRN PRN Reason: Nausea/Vomiting Discontinued Medications Donepezil HCl (Aricept) 5 mg PO BEDTIME [facility] Last Admin: 08/08/17 20:20 Dose: 5 mg Folic Acid (Folic Acid) 2 mg PO DAILY [facility] Last Admin: 08/09/17 08:56 Dose: 2 mg Sodium Chloride (Normal Saline) 1,000 mls @ 999 mls/hr IV ASDIRECTED [facility] Last Admin: 08/08/17 09:45 Dose: 999 mls/hr Sodium Chloride (Normal Saline) 1,000 mls @ 999 mls/hr IV ASDIRECTED [facility] Last Admin: 08/08/17 11:01 Dose: 999 mls/hr Potassium Chloride/Dextrose/Sod Cl (D5 Ns With 20 Meq Kcl) 1,000 mls @ 100 mls/ hr IV ASDIRECTED [facility] Last Admin: 08/09/17 01:57 Dose: 100 mls/hr Dextrose/Water (Dextrose 5% In Water) 1,000 mls @ 100 mls/hr IV ASDIRECTED [facility] Morphine Sulfate (Morphine 10 Mg/0.5 Ml Oral Syringe) 5 mg PO Q2H PRN PRN Reason: Pain Ondansetron HCl (Zofran) 4 mg IVPUSH ONETIME ONE Stop: 08/08/17 09:49 Last Admin: 08/08/17 09:15 Dose: 4 mg Ondansetron HCl (Zofran Odt) 4 mg PO Q6H PRN PRN Reason: Nausea able to take PO Polyethylene Glycol (Miralax) 17 gm PO DAILY PRN PRN Reason: Constipation - Exam General: Sedated, Lethargic - Problem List Review Problem List Initiated/Reviewed/Updated: Yes - Plan Plan:: ASSESSMENT AND PLAN - Probable aspiration pneumonitis with hypoxic respiratory failure-currently on comfort cares only -Morphine for pain and or air hunger -Lorazepam for anxiety Cirrhosis - New diagnosis. Complicated by pancytopenia and ascites. Suspect toxic causes. Family not interested in additional workup. -Comfort cares as above Hypovolemic hypernatremia - level has not improved despite volume resuscitation. now on comfort cares. -Saline lock IV Alzheimer's dementia - Fairly rapid decline despite being started on medications. Very weak at this time. Family does not believe he would want aggressive interventions given his poor [id number]. -Morphine for comfort -Melatonin at bedtime Encounter for palliative care - Family feels that patient would not want aggressive cares in this situation and we are transitioning to comfort cares today. Maintenance issues - - DVT prophylaxis - not indicated with comfort cares - GI prophylaxis - not indicated - Nutrition - soft diet - Enciso catheter - placed in the emergency room, will remain in place for comfort CODE STATUS - DNR/DNI with comfort cares Disposition - the patient is not stable for transfer to either custodial or home for comfort cares at this time. I would anticipate that his will occur in the near future with a limited number of hours or possibly up to a couple of days. Primary care physician - Dr Evans
[2017-08-12] MEDS: Melatonin 3 MG Tab PO SCH (21:59)
[2017-08-13] MEDS: Morphine 10 MG/0.5 ML Oral Syringe PO PRN ×4 (01:36→17:09)
[2017-08-13] MEDS ORDERED: LORazepam ORAL Concentrate 1MG/0.5ML U/D PO PRN (12:43)
--- NOTE | 2017-08-13 12:48 | PCM.PN ---
- General Info Date of Service: 08/13/17 Subjective Update: This patient has remained stable and is currently on comfort cares only. Family feels that he is been very comfortable over the past 24 hours, today less responsive with concentrated urine. Functional Status: Reports: Pain Controlled - Patient Data Vitals - Most Recent: Last Vital Signs Temp 98.7 F 08/13/17 10:50 Pulse 87 08/13/17 10:50 Resp 12 08/13/17 10:50 BP 75/57 L 08/13/17 10:50 Pulse Ox 97 08/13/17 10:50 Weight - Most Recent: 115 lb I&O - Last 24 Hours: Intake & Output 08/12/17 08/13/17 08/13/17 22:59 06:59 14:59 Output Total 200 375 Balance -200 -375 Med Orders - Current: Current Medications Acetaminophen (Tylenol) 650 mg PO Q4H PRN PRN Reason: Pain (Mild 1-3)/fever Acetaminophen (Tylenol) 650 mg RECTAL Q4H PRN PRN Reason: Mild pain/fever Atropine Sulfate (Atropine 1%) 0 ml SL Q4H PRN PRN Reason: secretions Last Admin: 08/09/17 11:20 Dose: 4 drop Lorazepam (Ativan Oral Concentrate 1mg/0.5 Ml U/D) 0.5 mg PO Q2H PRN PRN Reason: Agitation Melatonin (Melatonin) 9 mg PO BEDTIME [facility] Last Admin: 08/12/17 21:59 Dose: Not Given Morphine Sulfate (Morphine 10 Mg/0.5 Ml Oral Syringe) 5 mg PO Q1H PRN PRN Reason: Pain Last Admin: 08/13/17 08:28 Dose: 5 mg Ondansetron HCl (Zofran) 4 mg IV Q6H PRN PRN Reason: Nausea/Vomiting Discontinued Medications Donepezil HCl (Aricept) 5 mg PO BEDTIME [facility] Last Admin: 08/08/17 20:20 Dose: 5 mg Folic Acid (Folic Acid) 2 mg PO DAILY [facility] Last Admin: 08/09/17 08:56 Dose: 2 mg Sodium Chloride (Normal Saline) 1,000 mls @ 999 mls/hr IV ASDIRECTED [facility] Last Admin: 08/08/17 09:45 Dose: 999 mls/hr Sodium Chloride (Normal Saline) 1,000 mls @ 999 mls/hr IV ASDIRECTED [facility] Last Admin: 08/08/17 11:01 Dose: 999 mls/hr Potassium Chloride/Dextrose/Sod Cl (D5 Ns With 20 Meq Kcl) 1,000 mls @ 100 mls/ hr IV ASDIRECTED [facility] Last Admin: 08/09/17 01:57 Dose: 100 mls/hr Dextrose/Water (Dextrose 5% In Water) 1,000 mls @ 100 mls/hr IV ASDIRECTED [facility] Lorazepam (Ativan Oral Concentrate 1mg/0.5 Ml U/D) 0.5 mg PO Q1H PRN PRN Reason: Agitation Last Admin: 08/12/17 09:13 Dose: 0.5 mg Morphine Sulfate (Morphine 10 Mg/0.5 Ml Oral Syringe) 5 mg PO Q2H PRN PRN Reason: Pain Ondansetron HCl (Zofran) 4 mg IVPUSH ONETIME ONE Stop: 08/08/17 09:49 Last Admin: 08/08/17 09:15 Dose: 4 mg Ondansetron HCl (Zofran Odt) 4 mg PO Q6H PRN PRN Reason: Nausea able to take PO Polyethylene Glycol (Miralax) 17 gm PO DAILY PRN PRN Reason: Constipation - Exam General: Lethargic, Obtunded Lungs: Clear to Auscultation, Normal Respiratory Effort Cardiovascular: Regular Rate, Regular Rhythm, No Murmurs GI/Abdominal Exam: Soft, Non-Tender, No Organomegaly, No Distention Extremities: Non-Tender, No Pedal Edema Skin: Warm, Dry - Problem List Review Problem List Initiated/Reviewed/Updated: Yes - My Orders Last 24 Hours: My Active Orders 08/13/17 12:43 LORazepam [Ativan ORAL Concentrate 1MG/0.5 ML U/D] 0.5 mg PO Q2H PRN - Plan Plan:: ASSESSMENT AND PLAN - Probable aspiration-no significant respiratory compromise at the present time or evidence of underlying infection -Morphine for pain and or air hunger -Lorazepam for anxiety Cirrhosis - New diagnosis. Complicated by pancytopenia and ascites. Suspect toxic causes. Family not interested in additional workup. -Comfort cares as above Alzheimer's dementia - Fairly rapid decline despite being started on medications. Very weak at this time. Family does not believe he would want aggressive interventions given his poor [id number]. -Morphine for comfort -Melatonin at bedtime Encounter for palliative care - Family feels that patient would not want aggressive cares in this situation and we are transitioning to comfort cares today. Maintenance issues - - DVT prophylaxis - not indicated with comfort cares - GI prophylaxis - not indicated - Nutrition - soft diet - Enciso catheter - placed in the emergency room, will remain in place for comfort CODE STATUS - DNR/DNI with comfort cares Disposition - the patient is not stable for transfer to either correction or home for comfort cares at this time. I would anticipate that his will occur in the near future with a limited number of hours or possibly up to a couple of days. Primary care physician - Dr Evans
[2017-08-13] MEDS: Melatonin 3 MG Tab PO SCH (21:07)
[2017-08-14] MEDS: Morphine 10 MG/0.5 ML Oral Syringe PO PRN ×7 (07:30→20:36)
--- NOTE | 2017-08-14 13:10 | PCM.PN ---
- General Info Date of Service: 08/14/17 Subjective Update: This patient is currently receiving comfort cares only and has been very comfortable over the past 24 hours. He is less responsive today with no spontaneous movement. Urine output has decreased and urine appears to be extremely concentrated. Plan had been for discharge to group home with hospice cares but there are currently no male group home beds available. Given his severe lethargy he is unable to respond to questions or provide information concerning review of systems. Functional Status: Reports: Pain Controlled - Patient Data Vitals - Most Recent: Last Vital Signs Temp 99.3 F 08/14/17 10:00 Pulse 83 08/14/17 10:00 Resp 12 08/14/17 10:00 BP 88/50 L 08/14/17 10:00 Pulse Ox 94 L 08/14/17 10:00 Weight - Most Recent: 115 lb I&O - Last 24 Hours: Intake & Output 08/13/17 08/14/17 08/14/17 22:59 06:59 14:59 Output Total 300 250 Balance -300 -250 Med Orders - Current: Current Medications Acetaminophen (Tylenol) 650 mg PO Q4H PRN PRN Reason: Pain (Mild 1-3)/fever Acetaminophen (Tylenol) 650 mg RECTAL Q4H PRN PRN Reason: Mild pain/fever Atropine Sulfate (Atropine 1%) 0 ml SL Q4H PRN PRN Reason: secretions Last Admin: 08/09/17 11:20 Dose: 4 drop Lorazepam (Ativan Oral Concentrate 1mg/0.5 Ml U/D) 0.5 mg PO Q2H PRN PRN Reason: Agitation Last Admin: 08/14/17 07:34 Dose: 0.5 mg Melatonin (Melatonin) 9 mg PO BEDTIME [facility] Last Admin: 08/13/17 21:07 Dose: Not Given Morphine Sulfate (Morphine 10 Mg/0.5 Ml Oral Syringe) 5 mg PO Q1H PRN PRN Reason: Pain Last Admin: 08/14/17 10:42 Dose: 5 mg Ondansetron HCl (Zofran) 4 mg IV Q6H PRN PRN Reason: Nausea/Vomiting Discontinued Medications Donepezil HCl (Aricept) 5 mg PO BEDTIME [facility] Last Admin: 08/08/17 20:20 Dose: 5 mg Folic Acid (Folic Acid) 2 mg PO DAILY [facility] Last Admin: 08/09/17 08:56 Dose: 2 mg Sodium Chloride (Normal Saline) 1,000 mls @ 999 mls/hr IV ASDIRECTED [facility] Last Admin: 08/08/17 09:45 Dose: 999 mls/hr Sodium Chloride (Normal Saline) 1,000 mls @ 999 mls/hr IV ASDIRECTED [facility] Last Admin: 08/08/17 11:01 Dose: 999 mls/hr Potassium Chloride/Dextrose/Sod Cl (D5 Ns With 20 Meq Kcl) 1,000 mls @ 100 mls/ hr IV ASDIRECTED [facility] Last Admin: 08/09/17 01:57 Dose: 100 mls/hr Dextrose/Water (Dextrose 5% In Water) 1,000 mls @ 100 mls/hr IV ASDIRECTED [facility] Lorazepam (Ativan Oral Concentrate 1mg/0.5 Ml U/D) 0.5 mg PO Q1H PRN PRN Reason: Agitation Last Admin: 08/12/17 09:13 Dose: 0.5 mg Morphine Sulfate (Morphine 10 Mg/0.5 Ml Oral Syringe) 5 mg PO Q2H PRN PRN Reason: Pain Ondansetron HCl (Zofran) 4 mg IVPUSH ONETIME ONE Stop: 08/08/17 09:49 Last Admin: 08/08/17 09:15 Dose: 4 mg Ondansetron HCl (Zofran Odt) 4 mg PO Q6H PRN PRN Reason: Nausea able to take PO Polyethylene Glycol (Miralax) 17 gm PO DAILY PRN PRN Reason: Constipation - Exam General: Obtunded Lungs: Clear to Auscultation, Normal Respiratory Effort Cardiovascular: Regular Rate, Regular Rhythm, No Murmurs GI/Abdominal Exam: Soft, Non-Tender, No Organomegaly, No Distention Extremities: Non-Tender, Pedal Edema Skin: Warm, Dry, Intact - Problem List Review Problem List Initiated/Reviewed/Updated: Yes - My Orders Last 24 Hours: My Active Orders 08/13/17 12:43 LORazepam [Ativan ORAL Concentrate 1MG/0.5 ML U/D] 0.5 mg PO Q2H PRN - Plan Plan:: ASSESSMENT AND PLAN - Probable aspiration-no significant respiratory compromise at the present time or evidence of underlying infection -Morphine for pain and or air hunger -Lorazepam for anxiety Cirrhosis - New diagnosis. Complicated by pancytopenia and ascites. Suspect toxic causes. Family not interested in additional workup. -Comfort cares as above Alzheimer's dementia - Fairly rapid decline despite being started on medications. Very weak at this time. Family does not believe he would want aggressive interventions given his poor [id number]. -Morphine for comfort -Melatonin at bedtime Encounter for palliative care - Family feels that patient would not want aggressive cares in this situation and we are transitioning to comfort cares today. Maintenance issues - - DVT prophylaxis - not indicated with comfort cares - GI prophylaxis - not indicated - Nutrition - soft diet - Enciso catheter - placed in the emergency room, will remain in place for comfort CODE STATUS - DNR/DNI with comfort cares Disposition - the patient is not stable for transfer to either group home or home for comfort cares at this time. I would anticipate that his will occur in the near future with a limited number of hours or possibly up to a couple of days. Primary care physician - Dr Evans
[2017-08-14] MEDS: Melatonin 3 MG Tab PO SCH (20:59)
--- NOTE | 2017-08-15 13:25 | PCM.PN ---
- General Info Date of Service: 08/15/17 Subjective Update: This patient has shown significant deterioration over the past 24 hours and appears to be imminently dying. Blood pressure has been extremely low and respiratory rate has slowed significantly. He is comfortable with current management and family is at his bedside. Unable to provide significant information concerning symptoms or review systems. - Patient Data Vitals - Most Recent: Last Vital Signs Temp 99.3 F 08/14/17 10:00 Pulse 76 08/14/17 15:53 Resp 8 L 08/15/17 02:53 BP 54/32 L 08/15/17 09:01 Pulse Ox 86 L 08/14/17 15:53 Weight - Most Recent: 115 lb I&O - Last 24 Hours: Intake & Output 08/14/17 08/15/17 08/15/17 22:59 06:59 14:59 Intake Total 0 Balance 0 Med Orders - Current: Current Medications Acetaminophen (Tylenol) 650 mg PO Q4H PRN PRN Reason: Pain (Mild 1-3)/fever Acetaminophen (Tylenol) 650 mg RECTAL Q4H PRN PRN Reason: Mild pain/fever Atropine Sulfate (Atropine 1%) 0 ml SL Q4H PRN PRN Reason: secretions Last Admin: 08/09/17 11:20 Dose: 4 drop Lorazepam (Ativan Oral Concentrate 1mg/0.5 Ml U/D) 0.5 mg PO Q2H PRN PRN Reason: Agitation Last Admin: 08/14/17 07:34 Dose: 0.5 mg Melatonin (Melatonin) 9 mg PO BEDTIME [facility] Last Admin: 08/14/17 20:59 Dose: Not Given Morphine Sulfate (Morphine 10 Mg/0.5 Ml Oral Syringe) 5 mg PO Q1H PRN PRN Reason: Pain Last Admin: 08/14/17 20:36 Dose: 5 mg Ondansetron HCl (Zofran) 4 mg IV Q6H PRN PRN Reason: Nausea/Vomiting Discontinued Medications Donepezil HCl (Aricept) 5 mg PO BEDTIME [facility] Last Admin: 08/08/17 20:20 Dose: 5 mg Folic Acid (Folic Acid) 2 mg PO DAILY [facility] Last Admin: 08/09/17 08:56 Dose: 2 mg Sodium Chloride (Normal Saline) 1,000 mls @ 999 mls/hr IV ASDIRECTED [facility] Last Admin: 08/08/17 09:45 Dose: 999 mls/hr Sodium Chloride (Normal Saline) 1,000 mls @ 999 mls/hr IV ASDIRECTED [facility] Last Admin: 08/08/17 11:01 Dose: 999 mls/hr Potassium Chloride/Dextrose/Sod Cl (D5 Ns With 20 Meq Kcl) 1,000 mls @ 100 mls/ hr IV ASDIRECTED [facility] Last Admin: 08/09/17 01:57 Dose: 100 mls/hr Dextrose/Water (Dextrose 5% In Water) 1,000 mls @ 100 mls/hr IV ASDIRECTED [facility] Lorazepam (Ativan Oral Concentrate 1mg/0.5 Ml U/D) 0.5 mg PO Q1H PRN PRN Reason: Agitation Last Admin: 08/12/17 09:13 Dose: 0.5 mg Morphine Sulfate (Morphine 10 Mg/0.5 Ml Oral Syringe) 5 mg PO Q2H PRN PRN Reason: Pain Ondansetron HCl (Zofran) 4 mg IVPUSH ONETIME ONE Stop: 08/08/17 09:49 Last Admin: 08/08/17 09:15 Dose: 4 mg Ondansetron HCl (Zofran Odt) 4 mg PO Q6H PRN PRN Reason: Nausea able to take PO Polyethylene Glycol (Miralax) 17 gm PO DAILY PRN PRN Reason: Constipation Comments:: Patient appears to be comfortable, very slow respirations - Problem List Review Problem List Initiated/Reviewed/Updated: Yes - Plan Plan:: ASSESSMENT AND PLAN - Probable aspiration-patient appears to be comfortable, intermittently dying with very slow respiratory rate. -Morphine for pain and or air hunger -Lorazepam for anxiety Cirrhosis - New diagnosis. Complicated by pancytopenia and ascites. Suspect toxic causes. Family not interested in additional workup. -Comfort cares as above Alzheimer's dementia - Fairly rapid decline despite being started on medications. Very weak at this time. Family does not believe he would want aggressive interventions given his poor [id number]. -Morphine for comfort -Melatonin at bedtime Encounter for palliative care - Family feels that patient would not want aggressive cares in this situation and we are transitioning to comfort cares today. Maintenance issues - - DVT prophylaxis - not indicated with comfort cares - GI prophylaxis - not indicated - Nutrition - soft diet - Enciso catheter - placed in the emergency room, will remain in place for comfort CODE STATUS - DNR/DNI with comfort cares Disposition - the patient is not stable for transfer to either snf or home for comfort cares at this time. I would anticipate that his will occur in the near future with a limited number of hours or possibly up to a couple of days. Primary care physician - Dr Evans
[2017-08-15] MEDS: Melatonin 3 MG Tab PO SCH (21:54)
[2017-08-16] MEDS: Atropine Sulfate Ophth 2 ML Drops SL PRN (08:03)
--- NOTE | 2017-08-16 12:56 | PCM.DCSUM1 ---
Discharge Summary - Hospital Course Brief History: This patient was a 77-year-old gentleman who was admitted through the emergency department with a history of progressive weakness and decline. - Discharge Data Discharge Date: 08/16/17 Discharge Disposition: 20 Preliminary Cause of *Q: Other_Special Instruction (Hepatic cirrhosis) Condition: - Discharge Diagnosis/Problem(s) (1) Hypernatremia SNOMED Code(s): 69724287 ICD Code: E87.0 - HYPEROSMOLALITY AND HYPERNATREMIA Status: Acute (2) Stage III chronic kidney disease SNOMED Code(s): 742082342 ICD Code: N18.3 - CHRONIC KIDNEY DISEASE, STAGE 3 (MODERATE) Status: Chronic (3) Palliative care encounter SNOMED Code(s): 517545174 ICD Code: Z51.5 - ENCOUNTER FOR PALLIATIVE CARE Status: Chronic (4) Alzheimer's dementia without behavioral disturbance SNOMED Code(s): 74196552 ICD Code: G30.9 - ALZHEIMER'S DISEASE, UNSPECIFIED; F02.80 - DEMENTIA IN OTH DISEASES CLASSD ELSWHR W/O BEHAVRL DISTURB Status: Chronic Qualifiers: Alzheimer's disease onset: late-onset Qualified Code(s): G30.1 - Alzheimer' s disease with late onset; F02.80 - Dementia in other diseases classified elsewhere without behavioral disturbance; F02.80 - Dementia in other diseases classified elsewhere without behavioral disturbance; F02.80 - Dementia in other diseases classified elsewhere without behavioral disturbance (5) Cirrhosis of liver SNOMED Code(s): 83170206 ICD Code: K74.60 - UNSPECIFIED CIRRHOSIS OF LIVER Status: Chronic Qualifiers: Hepatic cirrhosis type: unspecified hepatic cirrhosis Ascites presence: with ascites Qualified Code(s): K74.60 - Unspecified cirrhosis of liver - Patient Summary/Data Hospital Course: This patient was a 77-year-old gentleman with a known history of Alzheimer's dementia. Prior to admission he experienced a recent history of progressive weakness with poor oral intake. On evaluation in the emergency department was found to have evidence of hepatic cirrhosis with ascites. He was not known to have had a previous history of this. He was admitted to the hospital for further evaluation and management shortly after admission experienced an episode of aspiration with eating. Findings were discussed with the family and they felt that he would not want further aggressive intervention or evaluation and he was switched to comfort cares only. Initially he did experience some respiratory compromise from the episode of aspiration but this stabilized with no ongoing evidence of infection or significant pulmonary inflammation. Further evaluation was not undertaken inserting his cirrhosis it was assumed that this was possibly secondary to medications that he had taken for some time. He was treated with morphine and lorazepam as needed for comfort. Over the next several days of hospitalization he deteriorated and on the morning of August 16. Family was at his bedside and no attempts were made at resuscitation as per the patient's and family's previously expressed wishes. - Discharge Plan Home Medications: Home Meds Atenolol 12.5 mg PO BID 08/08/17 [History] Calcium Carbonate [Calcium] 1,200 mg PO DAILY 08/08/17 [History] Donepezil [Aricept] 5 mg PO ONETIME 08/08/17 [History] Folic Acid 2 mg PO DAILY 08/08/17 [History] Methotrexate 2.5 mg PO ASDIRECTED 08/08/17 [History] Potassium Chloride 30 meq PO DAILY 08/08/17 [History] Simvastatin [Zocor] 40 mg PO BEDTIME 08/08/17 [History] amLODIPine [Norvasc] 5 mg PO DAILY 08/08/17 [History] Referrals: Rob Evans MD [Primary Care Provider] - - Patient Data Vitals - Most Recent: Last Vital Signs Temp 100.6 F 08/16/17 11:00 Pulse 43 L 08/16/17 11:00 Resp 24 H 08/16/17 11:00 BP 56/28 L 08/16/17 11:00 Pulse Ox 71 L 08/16/17 11:00 Weight - Most Recent: 115 lb I&O - Last 24 hours: Intake & Output 08/15/17 08/16/17 08/16/17 22:59 06:59 14:59 Output Total 50 25 Balance -50 -25 Med Orders - Current: Current Medications Acetaminophen (Tylenol) 650 mg PO Q4H PRN PRN Reason: Pain (Mild 1-3)/fever Acetaminophen (Tylenol) 650 mg RECTAL Q4H PRN PRN Reason: Mild pain/fever Atropine Sulfate (Atropine 1%) 0 ml SL Q4H PRN PRN Reason: secretions Last Admin: 08/16/17 08:03 Dose: 4 drop Lorazepam (Ativan Oral Concentrate 1mg/0.5 Ml U/D) 0.5 mg PO Q2H PRN PRN Reason: Agitation Last Admin: 08/14/17 07:34 Dose: 0.5 mg Melatonin (Melatonin) 9 mg PO BEDTIME [facility] Last Admin: 08/15/17 21:54 Dose: Not Given Morphine Sulfate (Morphine 10 Mg/0.5 Ml Oral Syringe) 5 mg PO Q1H PRN PRN Reason: Pain Last Admin: 08/14/17 20:36 Dose: 5 mg Ondansetron HCl (Zofran) 4 mg IV Q6H PRN PRN Reason: Nausea/Vomiting Discontinued Medications Donepezil HCl (Aricept) 5 mg PO BEDTIME [facility] Last Admin: 08/08/17 20:20 Dose: 5 mg Folic Acid (Folic Acid) 2 mg PO DAILY [facility] Last Admin: 08/09/17 08:56 Dose: 2 mg Sodium Chloride (Normal Saline) 1,000 mls @ 999 mls/hr IV ASDIRECTED [facility] Last Admin: 08/08/17 09:45 Dose: 999 mls/hr Sodium Chloride (Normal Saline) 1,000 mls @ 999 mls/hr IV ASDIRECTED [facility] Last Admin: 08/08/17 11:01 Dose: 999 mls/hr Potassium Chloride/Dextrose/Sod Cl (D5 Ns With 20 Meq Kcl) 1,000 mls @ 100 mls/ hr IV ASDIRECTED [facility] Last Admin: 08/09/17 01:57 Dose: 100 mls/hr Dextrose/Water (Dextrose 5% In Water) 1,000 mls @ 100 mls/hr IV ASDIRECTED [facility] Lorazepam (Ativan Oral Concentrate 1mg/0.5 Ml U/D) 0.5 mg PO Q1H PRN PRN Reason: Agitation Last Admin: 08/12/17 09:13 Dose: 0.5 mg Morphine Sulfate (Morphine 10 Mg/0.5 Ml Oral Syringe) 5 mg PO Q2H PRN PRN Reason: Pain Ondansetron HCl (Zofran) 4 mg IVPUSH ONETIME ONE Stop: 08/08/17 09:49 Last Admin: 08/08/17 09:15 Dose: 4 mg Ondansetron HCl (Zofran Odt) 4 mg PO Q6H PRN PRN Reason: Nausea able to take PO Polyethylene Glycol (Miralax) 17 gm PO DAILY PRN PRN Reason: Constipation *Q Meaningful Use (DIS) - VTE *Q VTE Criteria *Q: VTE Pharmacological Contraindications *Q: Thrombocytopenia - Stroke *Q Stroke Criteria *Q: - AMI *Q AMI Criteria *Q:
== END 2017-08-16 13:02 | disposition expired | DRG 640 ==
LOC: JP.ED 08:37 → JP.MS 14:40
PROVIDERS: ADMIT Internal Medicine; ATTEND Hospitalist
DX: E87.0 Hyperosmolality and hypernatremia (principal); J96.01 Acute respiratory failure with hypoxia; R18.8 Other ascites; D61.818 Other pancytopenia; E86.0 Dehydration; E87.6 Hypokalemia; I12.9 Hypertensive chronic kidney disease with stage 1 through stage 4 chronic kidney disease, or unspecified chronic kidney disease; N18.3 Chronic kidney disease, stage 3 (moderate); G30.1 Alzheimer's disease with late onset; F02.80 Dementia in other diseases classified elsewhere, unspecified severity, without behavioral disturbance, psychotic disturbance, mood disturbance, and anxiety; Z66 Do not resuscitate; R53.1 Weakness; Z51.5 Encounter for palliative care; K74.60 Unspecified cirrhosis of liver; R05 Cough; Z95.2 Presence of prosthetic heart valve; L40.50 Arthropathic psoriasis, unspecified; E78.00 Pure hypercholesterolemia, unspecified; H54.7 Unspecified visual loss; H91.90 Unspecified hearing loss, unspecified ear; Z88.1 Allergy status to other antibiotic agents; Z91.040 Latex allergy status; K74.69 Other cirrhosis of liver; E86.1 Hypovolemia; T17.920A Food in respiratory tract, part unspecified causing asphyxiation, initial encounter; X58.XXXA Exposure to other specified factors, initial encounter; Y92.239 Unspecified place in hospital as the place of occurrence of the external cause
CPT/HCPCS: 36415; 51702; 71010 ×2; 74176 ×2; 76705 ×2; 80053; 81001; 82150; 83690; 85025; 87040 ×2; 93005; 96361; 96374; 99285 ×2; J2405; J7040 ×2; 80048; 82140; 84295; 84443; 85027; 85610; 93010; 97161-GP; A9270-GY; J3480